=== PATIENT | female | born 1990 | race Caucasian/White ===

== ENCOUNTER 2017-10-23 01:10 | Emergency (ER) | payer OTHER ==
[~2017-10-23] VITALS: Ht 167.6 cm; Wt 90.7 kg
[~2017-10-23 01:10] MED LIST: Cipro500 MG PO; MECL12.5 PO; Norco 5-325 Ta1 EACH PO; Percocet 5-3251 EACH PO; Zofran Odt4 MG SL
[2017-10-23] MEDS ORDERED: Crutch1 EACH MISC (02:31)
[2017-10-23] MEDS ORDERED: IBUP800 PO (02:31)
== END 2017-10-23 02:58 | disposition home or self-care (01) ==
LOC: ER 01:10
DX: S89.91XA Unspecified injury of right lower leg, initial encounter (principal); F17.200 Nicotine dependence, unspecified, uncomplicated; Z91.013 Allergy to seafood; Z87.442 Personal history of urinary calculi; V49.9XXA Car occupant (driver) (passenger) injured in unspecified traffic accident, initial encounter
CPT/HCPCS: 29505; 60100; 73562-RT; 73590; 73610; 99283

== ENCOUNTER 2018-01-13 20:55 | Emergency (ER) | payer OTHER ==
[~2018-01-13] VITALS: Ht 170.2 cm; Wt 86.2 kg
[~2018-01-13 20:55] MED LIST changes: +Crutch1 EACH MISC; +IBUP800 PO
== END 2018-01-13 22:14 | disposition home or self-care (01) ==
LOC: ER 20:55
DX: L29.9 Pruritus, unspecified (principal); T78.1XXA Other adverse food reactions, not elsewhere classified, initial encounter; Z91.013 Allergy to seafood; F17.200 Nicotine dependence, unspecified, uncomplicated
CPT/HCPCS: 96372; 99283; J1200

== ENCOUNTER → 2018-05-07 | Outpatient (CLI) | payer OTHER | LOC: LAB 17:42 → LAB SHORT 17:42 | DX: N89.8 Other specified noninflammatory disorders of vagina (principal) | CPT/HCPCS: 87070; 87205 ==

== ENCOUNTER 2018-11-01 07:44 | Day surgery (SDC) | payer OTHER ==
[~2018-11-01] VITALS: Ht 170.2 cm; Wt 93.2 kg
[2018-11-01] MEDS ORDERED: IBUP800 PO (08:39)
--- NOTE | 2018-11-01 10:10 | NUR ---
11/01/18 1010 Irma Ramírez 150CC NACL FLUID DEFICIT FROM HYSTEROSCOPY. SURGEON AND ANESTHESIA AWARE.
--- NOTE | 2018-11-01 10:24 | NUR ---
11/01/18 1024 Keyana Herrera DRESSING #3 ABDOMEN STERISTRIPS AND BANDAID CDI DRESSING #5 PAULINE PAD. NO BLEEDING AT THIS TIME
--- NOTE | 2018-11-01 10:50 | NUR ---
11/01/18 1050 Keyana Herrera PT MEDICATED FOR NAUSEA PRIOR TO TRANSFER TO RECLINER. AFTER ZOFRAN, PT STATES NAUSEA IS BETTER. AT BEDSIDE. RN MEDICATING FOR PAIN PER ORDERS. PT TOLERATING PO SPRITE. WARM BLANKETS ACROSS ABDOMEN.
[2018-11-01 13:47] LABS: BASOPHILS ABSOLUTE AUTO 0.05 K/mm3 (0.00-0.23); BASOPHILS PERCENT AUTO 0 % (0-2); EOSINOPHILS ABSOLUTE AUTO 0.02 K/mm3 (0.00-0.68); EOSINOPHILS PERCENT AUTO 0 % (0-6); Hematocrit 37.6 % (33.0-51.0); Hemoglobin 12.3 g/dL (11.5-16.0); IMMATURE GRAN ABSOLUTE AUTO 0.05 K/mm3 (0.00-0.10); IMMATURE GRAN PERCENT AUTO 0 % (0-1); LYMPHOCYTES ABSOLUTE AUTO 0.74 K/mm3 (0.84-5.20); LYMPHOCYTES PERCENT AUTO 5 % (21-46); MONOCYTES ABSOLUTE AUTO 0.16 K/mm3 (0.16-1.47); MONOCYTES PERCENT AUTO 1 % (4-13); Mean Corpuscular HGB 31.9 pg (26.0-34.0); Mean Corpuscular HGB Conc 32.7 g/dL (31.5-36.5); Mean Corpuscular Volume 97 fL (80-100); Mean Platelet Volume 10.7 fL (9.1-12.4); NEUTROPHILS ABSOLUTE AUTO 14.03 K/mm3 (1.96-9.15); NEUTROPHILS PERCENT AUTO 93 % (41-73); Platelet Count 222 K/mm3 (150-400); RDW Coefficient Variation 12.9 % (11.7-14.2); RDW Standard Deviation 46.3 fL (35.1-46.3); Red Blood Cell Count 3.86 M/mm3 (3.80-5.20); White Blood Cell Count 15.05 K/mm3 (4.00-11.30)
[2018-11-01 15:51] LABS: Hematocrit 36.6 % (33.0-51.0); Hemoglobin 12.2 g/dL (11.5-16.0)
[2018-11-01] MEDS ORDERED: Percocet 5-3251 EACH PO (18:11)
--- NOTE | 2018-11-01 19:01 | NUR ---
PATIENT D/C'D HOME WITH FAMILY AT THIS TIME. DR LANDAVERDE IN TO SEE PT, RX WRITTEN AND D/C ORDERS REC'D. PATIENT STATES PAIN CONTROLLED WITH PO PAIN MEDS. TOLERATING CLEAR LIQUIDS PO. IV R HAND D/C'D INTACT, SITE CLEAR. SCANT PINK VAG DRAINAGE. HEMATOMA TO LLQ W/O CHANGE SINCE ADMIT. ABD BINDER IN PLACE. NO C/O AT THIS TIME.
== END 2018-11-05 17:53 | disposition home or self-care (01) ==
LOC: ORSCSDS 07:44 → SURS 14:41 → ORSCSDS 18:30 → SURS 18:30 → ORSCSDS 11-05 17:53
PROVIDERS: Obstetrics & Gynecology
PROC: 0UB04ZZ Excision of Right Ovary, Percutaneous Endoscopic Approach (ICD-10-PCS; principal; 2018-11-01 08:50)
PROC: 0UT74ZZ Resection of Bilateral Fallopian Tubes, Percutaneous Endoscopic Approach (ICD-10-PCS; principal; 2018-11-01 08:50)
DX: Z30.2 Encounter for sterilization (principal); N89.8 Other specified noninflammatory disorders of vagina; N83.201 Unspecified ovarian cyst, right side; F17.210 Nicotine dependence, cigarettes, uncomplicated
CPT/HCPCS: 36415; 85014; 85018; 85025; 86850; 86900; 86901; 88302; 88305; J1100; J1885; J2001; J2060; J2250; J2405; J3010; J7120

== ENCOUNTER 2018-11-02 16:57 | Emergency (ER) | payer OTHER ==
[~2018-11-02] VITALS: Ht 170.2 cm; Wt 93.0 kg
[2018-11-02 17:56] LABS: BASOPHILS ABSOLUTE AUTO 0.09 K/mm3 (0.00-0.23); BASOPHILS PERCENT AUTO 1 % (0-2); EOSINOPHILS ABSOLUTE AUTO 0.16 K/mm3 (0.00-0.68); EOSINOPHILS PERCENT AUTO 2 % (0-6); Hematocrit 36.3 % (33.0-51.0); Hemoglobin 11.9 g/dL (11.5-16.0); IMMATURE GRAN ABSOLUTE AUTO 0.03 K/mm3 (0.00-0.10); IMMATURE GRAN PERCENT AUTO 0 % (0-1); LYMPHOCYTES ABSOLUTE AUTO 2.99 K/mm3 (0.84-5.20); LYMPHOCYTES PERCENT AUTO 29 % (21-46); MONOCYTES ABSOLUTE AUTO 0.58 K/mm3 (0.16-1.47); MONOCYTES PERCENT AUTO 6 % (4-13); Mean Corpuscular HGB 32.7 pg (26.0-34.0); Mean Corpuscular HGB Conc 32.8 g/dL (31.5-36.5); Mean Platelet Volume 10.5 fL (9.1-12.4); NEUTROPHILS ABSOLUTE AUTO 6.51 K/mm3 (1.96-9.15); NEUTROPHILS PERCENT AUTO 63 % (41-73); Platelet Count 219 K/mm3 (150-400); Red Blood Cell Count 3.64 M/mm3 (3.80-5.20); White Blood Cell Count 10.36 K/mm3 (4.00-11.30)
[2018-11-02 18:00] LABS: Mean Corpuscular Volume 100 fL (80-100)
[2018-11-02 18:20] LABS: Alanine Aminotransfer (ALT/SGP 24 U/L (12-78); Albumin, Blood 3.6 g/dL (3.4-5.0); Alk Phos 83 U/L (50-136); Anion Gap 8 mmol/L (6-16); Aspartate Aminotrans (AST/SGOT 11 U/L (12-37); Bilirubin, Total 0.3 mg/dL (0.1-1.0); Blood Urea Nitrogen 7 mg/dL (8-24); Bun/Creatinine Ratio 7.7 (12.0-20.0); CO2, Blood 23 mmol/L (21-32); Calcium, Blood 8.2 mg/dL (8.5-10.1); Chloride, Blood 108 mmol/L (98-108); Creatinine, Blood 0.91 mg/dL (0.40-1.00); Globulin, Blood 3.6 g/dL (2.2-4.0); Glomerular Filtration Rate >60 (60-); Glucose, Blood 84 mg/dL (70-99); Potassium, Blood 3.4 mmol/L (3.5-5.5); Sodium, Blood 139 mmol/L (136-145); Total Protein, Blood 7.2 g/dL (6.4-8.2)
== END 2018-11-02 20:06 | disposition home or self-care (01) ==
LOC: ER 16:57
PROVIDERS: Physician Assistant
DX: L76.32 Postprocedural hematoma of skin and subcutaneous tissue following other procedure (principal); F17.200 Nicotine dependence, unspecified, uncomplicated; Z91.013 Allergy to seafood; Z79.899 Other long term (current) drug therapy
CPT/HCPCS: 36415; 74177; 80053; 85025; 96374; 99284-25; J3010; Q9967

== ENCOUNTER 2019-01-28 15:34 | Emergency (ER) | payer OTHER ==
[~2019-01-28] VITALS: Ht 170.2 cm; Wt 90.7 kg
[2019-01-28 16:48] LABS: Source, Urine Clean Catch
[2019-01-28 16:50] LABS: Bilirubin, Urine Neg (Neg); Blood, Urine 2+ (Neg); Glucose Qualitative, Urine Neg (Neg); Ketones, Urine Neg (Neg); Leukocyte Esterase, Urine 1+ (Neg); Nitrite, Urine Neg (Neg); Protein, Urine Neg (Neg); Specific Gravity, Urine 1.015 (1.003-1.022); Urobilinogen, Urine NORM (Normal); pH, Urine 6.5 (5.0-8.0)
[2019-01-28 16:53] LABS: BASOPHILS ABSOLUTE AUTO 0.12 K/mm3 (0.00-0.23); BASOPHILS PERCENT AUTO 1 % (0-2); EOSINOPHILS ABSOLUTE AUTO 0.33 K/mm3 (0.00-0.68); EOSINOPHILS PERCENT AUTO 3 % (0-6); Hematocrit 44.1 % (33.0-51.0); Hemoglobin 14.7 g/dL (11.5-16.0); IMMATURE GRAN ABSOLUTE AUTO 0.04 K/mm3 (0.00-0.10); IMMATURE GRAN PERCENT AUTO 0 % (0-1); LYMPHOCYTES ABSOLUTE AUTO 2.42 K/mm3 (0.84-5.20); LYMPHOCYTES PERCENT AUTO 25 % (21-46); MONOCYTES ABSOLUTE AUTO 0.49 K/mm3 (0.16-1.47); MONOCYTES PERCENT AUTO 5 % (4-13); Mean Corpuscular HGB Conc 33.3 g/dL (31.5-36.5); Mean Corpuscular Volume 96 fL (80-100); Mean Platelet Volume 10.6 fL (9.1-12.4); NEUTROPHILS ABSOLUTE AUTO 6.23 K/mm3 (1.96-9.15); NEUTROPHILS PERCENT AUTO 65 % (41-73); Platelet Count 279 K/mm3 (150-400); RDW Coefficient Variation 12.5 % (11.7-14.2); RDW Standard Deviation 44.6 fL (35.1-46.3); White Blood Cell Count 9.63 K/mm3 (4.00-11.30)
[2019-01-28 17:13] LABS: Alanine Aminotransfer (ALT/SGP 33 U/L (12-78); Albumin, Blood 3.7 g/dL (3.4-5.0); Albumin/Globulin Ratio 0.9 (0.8-1.8); Alk Phos 123 U/L (50-136); Anion Gap 4 mmol/L (6-16); Aspartate Aminotrans (AST/SGOT 17 U/L (12-37); Bilirubin, Total 0.3 mg/dL (0.1-1.0); Blood Urea Nitrogen 8 mg/dL (8-24); CO2, Blood 27 mmol/L (21-32); Calcium, Blood 9.5 mg/dL (8.5-10.1); Chloride, Blood 108 mmol/L (98-108); Creatinine, Blood 0.72 mg/dL (0.40-1.00); Globulin, Blood 4.1 g/dL (2.2-4.0); Glomerular Filtration Rate >60 (60-); Glucose, Blood 75 mg/dL (70-99); Sodium, Blood 139 mmol/L (136-145); Total Protein, Blood 7.8 g/dL (6.4-8.2)
[2019-01-28 17:17] LABS: Appearance, Urine Clear (Clear); Color, Urine Yellow (P-Yellow)
[2019-01-28 17:20] LABS: White Blood Cells, Urine 0-2 /hpf (0-5)
[2019-01-28 17:21] LABS: Bacteria Not Seen /hpf; Squamous Epithelial Cells Few /hpf (Few)
[2019-01-28] MEDS ORDERED: Norco 5-325 Ta1 EACH PO (18:49)
== END 2019-01-28 19:10 | disposition home or self-care (01) ==
LOC: ER 15:34
PROVIDERS: Physician Assistant
DX: N94.6 Dysmenorrhea, unspecified (principal); K92.2 Gastrointestinal hemorrhage, unspecified; Q43.0 Meckel's diverticulum (displaced) (hypertrophic); Z91.013 Allergy to seafood
CPT/HCPCS: 36415; 74177; 80053; 81001; 85025; 87086; 99284-25; Q9967

== ENCOUNTER → 2019-04-05 | Outpatient (CLI) | payer OTHER ==
[~2019-04-05] MED LIST changes: +NAPR550 PO
== END | disposition home or self-care (01) ==
LOC: LAB EV 11:58 → LAB SHORT 11:58
DX: K52.9 Noninfective gastroenteritis and colitis, unspecified (principal)
CPT/HCPCS: 87086

== ENCOUNTER 2019-06-15 14:35 | Emergency (ER) | payer OTHER ==
[~2019-06-15] VITALS: Ht 170.2 cm; Wt 90.7 kg
[~2019-06-15 14:35] MED LIST changes: -NAPR550 PO
[2019-06-15] MEDS ORDERED: NAPR550 PO (16:18)
== END 2019-06-15 16:24 | disposition home or self-care (01) ==
LOC: ER 14:35
DX: S83.91XA Sprain of unspecified site of right knee, initial encounter (principal); F17.200 Nicotine dependence, unspecified, uncomplicated; Z91.013 Allergy to seafood; W18.30XA Fall on same level, unspecified, initial encounter
CPT/HCPCS: 73562-RT; 99283-25

== ENCOUNTER 2019-09-19 15:14 | Emergency (ER) | payer OTHER ==
[~2019-09-19] VITALS: Ht 167.6 cm; Wt 97.5 kg
[~2019-09-19 15:14] MED LIST changes: +NAPR550 PO
[2019-09-19] MEDS ORDERED: ROBITUSSIN COU237 ML PO (15:48)
[2019-09-19] MEDS ORDERED: PSEU120ER PO (15:48)
[2019-09-19] MEDS ORDERED: Cleocin HCl300 MG PO (15:48)
[2019-09-19] MEDS ORDERED: Flonase 0.05% N16 GM (15:48)
== END 2019-09-19 16:14 | disposition home or self-care (01) ==
LOC: ER 15:14
DX: J32.9 Chronic sinusitis, unspecified (principal); F17.200 Nicotine dependence, unspecified, uncomplicated
CPT/HCPCS: 87081; 87430; 99283; J1100

== ENCOUNTER 2019-10-04 17:49 | Emergency (ER) | payer OTHER ==
[~2019-10-04] VITALS: Ht 170.2 cm; Wt 99.8 kg
[~2019-10-04 17:49] MED LIST changes: +Cleocin HCl300 MG PO; +Flonase 0.05% N16 GM; +PSEU120ER PO; +ROBITUSSIN COU237 ML PO
[2019-10-04] MEDS ORDERED: PSEU120ER PO (19:16)
== END 2019-10-04 19:30 | disposition home or self-care (01) ==
LOC: ER 17:49
DX: J02.9 Acute pharyngitis, unspecified (principal); R51 Headache; F17.200 Nicotine dependence, unspecified, uncomplicated; Z91.013 Allergy to seafood
CPT/HCPCS: 69209; 87430; 96372-59; 99283-25; J1100; J1885

== ENCOUNTER → 2020-03-11 | Outpatient (CLI) | payer OTHER | LOC: LAB EV 14:31 → LAB SHORT 14:31 | DX: J02.9 Acute pharyngitis, unspecified (principal) | CPT/HCPCS: 87081 ==

== ENCOUNTER 2020-09-30 15:22 | Emergency (ER) | payer OTHER ==
[~2020-09-30] VITALS: Ht 170.2 cm; Wt 99.8 kg
== END 2020-09-30 17:45 | disposition home or self-care (01) ==
LOC: ER 15:22
DX: S06.9X9A Unspecified intracranial injury with loss of consciousness of unspecified duration, initial encounter (principal); S00.83XA Contusion of other part of head, initial encounter; Z91.013 Allergy to seafood; Z79.899 Other long term (current) drug therapy; Z87.891 Personal history of nicotine dependence; Y04.0XXA Assault by unarmed brawl or fight, initial encounter
CPT/HCPCS: 70450; 99283-25; A9270

== ENCOUNTER → 2022-01-06 | Outpatient (CLI) | payer OTHER | END | disposition home or self-care (01) | LOC: LAB 15:04 → LAB SHORT 15:04 | DX: N85.8 Other specified noninflammatory disorders of uterus (principal) | CPT/HCPCS: 88305 ==

== ENCOUNTER → 2022-01-11 | Outpatient (CLI) | payer OTHER | END | disposition home or self-care (01) | LOC: LAB 16:41 → LAB SHORT 16:41 | DX: N39.0 Urinary tract infection, site not specified (principal) | CPT/HCPCS: 87086 ==

== ENCOUNTER 2022-02-07 08:35 | Day surgery (SDC) | payer OTHER ==
[~2022-02-07] VITALS: Ht 170.2 cm; Wt 104.6 kg
[~2022-02-07 08:35] MED LIST changes: +KRATOM PO
[2022-02-07] MEDS ORDERED: IBUP800 PO (16:11)
[2022-02-07] MEDS ORDERED: OXYC5 PO (16:12)
--- NOTE | 2022-02-07 16:35 | NUR ---
DISCHARGE PAIN WELL CONTROLLED. EATING, DRINKING, & VOIDING WELL. AMBULATING. SCRIPT GIVEN. ESCORTED OUT VIA W/C.
== END 2022-02-07 16:35 | disposition home or self-care (01) ==
LOC: ORSCMMR 08:35 → ORD 10:00 → SURS 14:25 → ORSCMMR 16:35
PROVIDERS: Obstetrics & Gynecology
PROC: 0UT9FZZ Resection of Uterus, Via Natural or Artificial Opening With Percutaneous Endoscopic Assistance (ICD-10-PCS; principal; 2022-02-07 10:00)
DX: N80.0 Endometriosis of uterus (principal); N92.0 Excessive and frequent menstruation with regular cycle; N94.6 Dysmenorrhea, unspecified; Z87.891 Personal history of nicotine dependence; E66.9 Obesity, unspecified; Z68.36 Body mass index [BMI] 36.0-36.9, adult
CPT/HCPCS: 36415; 86850; 86900; 86901; 88307; A9270; J0171; J0690; J1100; J1885; J2250; J2405; J2704; J2765; J3010; J7120

== ENCOUNTER 2022-06-07 23:29 | Emergency (ER) | payer OTHER ==
[~2022-06-07] VITALS: Ht 167.6 cm; Wt 97.5 kg
[~2022-06-07 23:29] MED LIST changes: +OXYC5 PO
== END 2022-06-08 02:01 | disposition home or self-care (01) ==
LOC: ER 23:29
DX: S93.401A Sprain of unspecified ligament of right ankle, initial encounter (principal); F17.200 Nicotine dependence, unspecified, uncomplicated; Z88.5 Allergy status to narcotic agent; Z91.013 Allergy to seafood; X50.1XXA Overexertion from prolonged static or awkward postures, initial encounter
CPT/HCPCS: 73610; 99283-25; A9270

== ENCOUNTER → 2023-03-16 | Outpatient (CLI) | payer OTHER ==
[2023-03-16 12:15] LABS: BASOPHILS ABSOLUTE AUTO 0.08 K/mm3 (0.00-0.23); BASOPHILS PERCENT AUTO 1 % (0-2); EOSINOPHILS ABSOLUTE AUTO 0.16 K/mm3 (0.00-0.68); EOSINOPHILS PERCENT AUTO 2 % (0-6); Hematocrit 41.5 % (33.0-51.0); Hemoglobin 14.3 g/dL (11.5-16.0); IMMATURE GRAN ABSOLUTE AUTO 0.02 K/mm3 (0.00-0.10); IMMATURE GRAN PERCENT AUTO 0 % (0-1); LYMPHOCYTES ABSOLUTE AUTO 1.79 K/mm3 (0.84-5.20); LYMPHOCYTES PERCENT AUTO 25 % (21-46); MONOCYTES ABSOLUTE AUTO 0.43 K/mm3 (0.16-1.47); MONOCYTES PERCENT AUTO 6 % (4-13); Mean Corpuscular HGB Conc 34.5 g/dL (31.5-36.5); Mean Corpuscular Volume 90 fL (80-100); Mean Platelet Volume 10.5 fL (9.1-12.4); NEUTROPHILS ABSOLUTE AUTO 4.57 K/mm3 (1.96-9.15); NEUTROPHILS PERCENT AUTO 65 % (41-73); Platelet Count 268 K/mm3 (150-400); RDW Coefficient Variation 12.9 % (11.7-14.2); RDW Standard Deviation 42.3 fL (35.1-46.3); Red Blood Cell Count 4.61 M/mm3 (3.80-5.20); White Blood Cell Count 7.05 K/mm3 (4.00-11.30)
[2023-03-16 12:25] LABS: Albumin, Blood 3.5 g/dL (3.4-5.0); Albumin/Globulin Ratio 0.9 (0.8-1.8); Bilirubin, Total 0.4 mg/dL (0.1-1.0); Bun/Creatinine Ratio 10.2 (12.0-20.0); Creatinine, Blood 0.98 mg/dL (0.40-1.00); Globulin, Blood 4.1 g/dL (2.2-4.0); Potassium, Blood 4.1 mmol/L (3.5-5.5); Total Protein, Blood 7.6 g/dL (6.4-8.2)
== END | disposition home or self-care (01) ==
LOC: LAB 12:10 → LAB SHORT 12:10
PROVIDERS: Emergency Medicine
DX: R10.13 Epigastric pain (principal)
CPT/HCPCS: 80053; 83690; 85025

== ENCOUNTER 2023-06-06 10:00 | Day surgery (SDC) | payer OTHER ==
[~2023-06-06] VITALS: Ht 170.2 cm; Wt 88.2 kg
[2023-06-06] MEDS ORDERED: TRAM50 PO (10:57)
[2023-06-06] MEDS ORDERED: Prozac40 MG PO (10:58)
[2023-06-06 12:38] VITALS: BP 110/80
== END 2023-06-06 12:48 | disposition home or self-care (01) ==
LOC: ORSCSDS 10:00
PROVIDERS: Internal Medicine Gastroenterology
PROC: 0DBN8ZX Excision of Sigmoid Colon, Via Natural or Artificial Opening Endoscopic, Diagnostic (ICD-10-PCS; principal; 2023-06-06 11:45)
PROC: 0DB78ZX Excision of Stomach, Pylorus, Via Natural or Artificial Opening Endoscopic, Diagnostic (ICD-10-PCS; principal; 2023-06-06 11:45)
PROC: 0DB98ZX Excision of Duodenum, Via Natural or Artificial Opening Endoscopic, Diagnostic (ICD-10-PCS; principal; 2023-06-06 11:45)
DX: R19.4 Change in bowel habit (principal); R10.13 Epigastric pain; K29.70 Gastritis, unspecified, without bleeding; B96.81 Helicobacter pylori [H. pylori] as the cause of diseases classified elsewhere; K63.5 Polyp of colon; K62.5 Hemorrhage of anus and rectum; K60.2 Anal fissure, unspecified; K57.30 Diverticulosis of large intestine without perforation or abscess without bleeding; Z87.891 Personal history of nicotine dependence; Z79.899 Other long term (current) drug therapy
CPT/HCPCS: 88305; 88342; J2250; J2405; J2704; J7120

== ENCOUNTER → 2024-05-29 | Outpatient (CLI) | payer OTHER ==
[~2024-05-29] MED LIST changes: +Prozac40 MG PO; +TRAM50 PO
== END ==
LOC: LAB 15:00 → LAB SHORT 15:00
DX: N39.0 Urinary tract infection, site not specified (principal)
CPT/HCPCS: 87077; 87086; 87186

== ENCOUNTER 2024-06-21 10:58 | Emergency (ER) | payer OTHER ==
[~2024-06-21] VITALS: Ht 170.2 cm; Wt 97.5 kg
[2024-06-21 11:05] VITALS: BP 142/105
[2024-06-21] MEDS ORDERED: OxyCODONE HCL 5 MG TAB PO ONE (12:30)
[2024-06-21] MEDS ORDERED: Percocet 5-3251 EACH PO (12:34)
== END 2024-06-21 12:50 ==
LOC: ER 10:58
DX: S83.91XA Sprain of unspecified site of right knee, initial encounter (principal); X50.1XXA Overexertion from prolonged static or awkward postures, initial encounter; Z87.891 Personal history of nicotine dependence; Z79.899 Other long term (current) drug therapy; Z88.5 Allergy status to narcotic agent; Z91.013 Allergy to seafood
CPT/HCPCS: 29505; 73562-RT; 99283-25; A9270

== ENCOUNTER 2024-07-26 15:41 | Emergency (ER) | payer OTHER ==
[~2024-07-26] VITALS: Ht 170.2 cm; Wt 88.5 kg
[2024-07-26 15:58] VITALS: BP 172/90
[2024-07-26] MEDS ORDERED: HYDROmorphone HCl 2 MG Tab PO ONE (16:25)
== END 2024-07-26 18:45 | disposition home or self-care (01) ==
LOC: ER 15:41
DX: S83.511A Sprain of anterior cruciate ligament of right knee, initial encounter (principal); X58.XXXA Exposure to other specified factors, initial encounter; F17.200 Nicotine dependence, unspecified, uncomplicated
CPT/HCPCS: 73562-RT; 99283-25; A9270

== ENCOUNTER 2024-08-31 12:14 | Emergency (ER) | payer OTHER ==
[~2024-08-31] VITALS: Ht 170.2 cm; Wt 90.7 kg
[2024-08-31 12:40] VITALS: BP 149/127
[2024-08-31] MEDS ORDERED: Percocet 7.5-31 EACH PO (13:49)
== END 2024-08-31 14:00 | disposition home or self-care (01) ==
LOC: ER 12:14
DX: S83.511A Sprain of anterior cruciate ligament of right knee, initial encounter (principal); X58.XXXA Exposure to other specified factors, initial encounter; Z87.891 Personal history of nicotine dependence; Z79.899 Other long term (current) drug therapy; Z88.5 Allergy status to narcotic agent; Z91.013 Allergy to seafood
CPT/HCPCS: 73610; 99283-25

== ENCOUNTER 2024-09-17 10:04 | Day surgery (SDC) | payer OTHER ==
[~2024-09-17] VITALS: Ht 170.2 cm; Wt 89.8 kg
[~2024-09-17 10:04] MED LIST changes: +Lactated Ringer's 1,000 ML IV ONE; +Lidocaine 1%-Epineph 1:100000 20 ML MDV ONE; +Percocet 7.5-31 EACH PO
[2024-09-17] MEDS ORDERED: CeFAZolin Sodium 2,000 MG VIAL ONE (10:16)
[2024-09-17] MEDS ORDERED: Tranexamic Acid 100 ML IV ONE (10:21)
[2024-09-17] MEDS ORDERED: Ropivacaine 0.5% HCL/PF 5 MG/ML 30ML Vial ONE (10:25)
[2024-09-17] MEDS ORDERED: propofoL 100 ML IV ONE (10:26)
[2024-09-17] MEDS ORDERED: Lactated Ringer's 1,000 ML IV ONE ×2 (11:08→15:31)
[2024-09-17] MEDS ORDERED: FentaNYL Citrate 50 MCG/ML 2 ML Injection ONE ×2 (11:18→13:13)
[2024-09-17] MEDS ORDERED: Acetaminophen 500 MG Tab ONE (12:24)
--- NOTE | 2024-09-17 12:49 | NUR ---
09/17/24 1249 Stanley Pate, BLOCK TIMEOUT 1233 BLOCK STARTED ADDUCTOR CANAL 1236, FINISHED 1238 BLOCK IPAC NERVE STARTED 1240, FINISHED 1241
[2024-09-17] MEDS ORDERED: Ondansetron HCl 2 MG / ML 2ML Vial ONE ×2 (13:07→13:56)
[2024-09-17] MEDS ORDERED: Dexamethasone Sod Phos 10 MG/ML 1ML VIAL ONE (13:07)
[2024-09-17] MEDS ORDERED: Ketamine HCl 100 MG / ML 5ML Vial ONE (13:22)
[2024-09-17] MEDS ORDERED: propofoL 40 ML IV ONE ×2 (13:41→15:11)
[2024-09-17] MEDS ORDERED: HYDROmorphone HCl/Pf 1MG SYR ONE (14:00)
[2024-09-17] MEDS ORDERED: propofoL 20 ML IV ONE ×2 (14:34)
[2024-09-17] MEDS ORDERED: Ketorolac Tromethamine 30mg Vial ONE (15:16)
[2024-09-17] MEDS ORDERED: propofoL 50 ML IV ONE ×2 (15:41→15:59)
[2024-09-17 17:16] VITALS: BP 120/80
== END 2024-09-17 17:56 | disposition home or self-care (01) ==
LOC: ORSCSDS 10:04
PROVIDERS: Orthopaedic Surgery Sports Medicine
PROC: 0MRN4KZ Replacement of Right Knee Bursa and Ligament with Nonautologous Tissue Substitute, Percutaneous Endoscopic Approach (ICD-10-PCS; principal; 2024-09-17 11:30)
DX: S83.511A Sprain of anterior cruciate ligament of right knee, initial encounter (principal); M25.561 Pain in right knee; S83.281A Other tear of lateral meniscus, current injury, right knee, initial encounter; W01.0XXA Fall on same level from slipping, tripping and stumbling without subsequent striking against object, initial encounter; Z87.891 Personal history of nicotine dependence; Z79.899 Other long term (current) drug therapy; E66.9 Obesity, unspecified; Z68.34 Body mass index [BMI] 34.0-34.9, adult
CPT/HCPCS: A9270; C1713; C1762; C1889; J0690; J1100; J1171; J1885; J2405; J2704; J2795; J3010; J7120

== ENCOUNTER 2024-09-28 09:28 | Emergency (ER) | payer OTHER ==
[~2024-09-28] VITALS: Ht 170.2 cm; Wt 88.5 kg
[~2024-09-28 09:28] MED LIST changes: -Lactated Ringer's 1,000 ML IV ONE; -Lidocaine 1%-Epineph 1:100000 20 ML MDV ONE
[2024-09-28 10:07] LABS: BASOPHILS ABSOLUTE AUTO 0.11 K/mm3 (0.00-0.23); BASOPHILS PERCENT AUTO 1 % (0-2); EOSINOPHILS ABSOLUTE AUTO 0.27 K/mm3 (0.00-0.68); EOSINOPHILS PERCENT AUTO 3 % (0-6); Hematocrit 40.2 % (33.0-51.0); Hemoglobin 13.5 g/dL (11.5-16.0); IMMATURE GRAN ABSOLUTE AUTO 0.02 K/mm3 (0.00-0.10); IMMATURE GRAN PERCENT AUTO 0 % (0-1); LYMPHOCYTES ABSOLUTE AUTO 2.22 K/mm3 (0.84-5.20); LYMPHOCYTES PERCENT AUTO 22 % (21-46); MONOCYTES ABSOLUTE AUTO 0.55 K/mm3 (0.16-1.47); MONOCYTES PERCENT AUTO 6 % (4-13); Mean Corpuscular HGB 31.3 pg (26.0-34.0); Mean Corpuscular HGB Conc 33.6 g/dL (31.5-36.5); Mean Corpuscular Volume 93 fL (80-100); Mean Platelet Volume 10.1 fL (9.1-12.4); NEUTROPHILS ABSOLUTE AUTO 6.84 K/mm3 (1.96-9.15); NEUTROPHILS PERCENT AUTO 68 % (41-73); Platelet Count 311 K/mm3 (150-400); RDW Coefficient Variation 12.5 % (11.7-14.2); RDW Standard Deviation 42.7 fL (35.1-46.3); Red Blood Cell Count 4.32 M/mm3 (3.80-5.20); White Blood Cell Count 10.01 K/mm3 (4.00-11.30)
[2024-09-28 10:47] LABS: Albumin, Blood 3.2 g/dL (3.4-5.0); Albumin/Globulin Ratio 0.8 (0.8-1.8); Bilirubin, Total 0.5 mg/dL (0.1-1.0); Bun/Creatinine Ratio 8.4 (12.0-20.0); Calcium, Blood 9.3 mg/dL (8.5-10.1); Creatinine, Blood 0.72 mg/dL (0.40-1.00); Globulin, Blood 3.9 g/dL (2.2-4.0); Potassium, Blood 3.5 mmol/L (3.5-5.5); Total Protein, Blood 7.1 g/dL (6.4-8.2)
[2024-09-28 13:18] VITALS: BP 126/98
== END 2024-09-28 13:20 | disposition home or self-care (01) ==
LOC: ER 09:28
PROVIDERS: Emergency Medicine
DX: R22.41 Localized swelling, mass and lump, right lower limb (principal); R21 Rash and other nonspecific skin eruption; Z88.5 Allergy status to narcotic agent; Z91.013 Allergy to seafood; Z79.899 Other long term (current) drug therapy; Z87.891 Personal history of nicotine dependence
CPT/HCPCS: 80053; 85025; 93971; 99284-25

== ENCOUNTER 2024-11-06 11:47 | Emergency (ER) | payer OTHER ==
[~2024-11-06] VITALS: Ht 170.2 cm; Wt 88.5 kg
[2024-11-06 12:05] VITALS: BP 137/90
[2024-11-06] MEDS ORDERED: Ketorolac Tromethamine 15mg Vial IM ONE (12:05)
== END 2024-11-06 13:28 | disposition home or self-care (01) ==
LOC: ER 11:47
DX: S93.401A Sprain of unspecified ligament of right ankle, initial encounter (principal); M79.671 Pain in right foot; F17.200 Nicotine dependence, unspecified, uncomplicated; Z79.899 Other long term (current) drug therapy; Z59.89 Other problems related to housing and economic circumstances; X50.1XXA Overexertion from prolonged static or awkward postures, initial encounter
CPT/HCPCS: 73610; 99283-25; J1885

== ENCOUNTER → 2024-12-05 | Outpatient (CLI) | payer OTHER | END | disposition home or self-care (01) | LOC: LAB SHORT 10:13 → LAB 10:13 → PLD 10:13 | DX: D21.11 Benign neoplasm of connective and other soft tissue of right upper limb, including shoulder (principal); M67.431 Ganglion, right wrist | CPT/HCPCS: 88305 ==